=== PATIENT | female | born 1990 | race American Indian/Alaskan Native ===

== ENCOUNTER 2016-07-28 04:19 | Emergency (ER) | payer SELFPAY ==
--- NOTE | 2016-07-28 08:51 | Emergency Department Report ---
ED Rash HPI - HPI Chief Complaint: Skin Rash Stated Complaint: RASH Time Seen by Provider: 07/28/16 08:45 Duration: Today Location: Head, Neck, Chest, Back, Abdomen, Upper Extremities, Lower Extremities Rash Symptoms: Yes Itching, No Facial Swelling, No Tongue/Oral Swelling, No Breathing Difficulties, No Choking Sensation, No Wheezing/Dyspnea, No Peeling, No Blistering, No Fever, No Lightheaded, No Malaise, No Myalgias Severity: mild Other History: 26-year-old female past medical history none presents with complaint of diffuse itchy rash on the skin after swimming in pool 2 nights ago. Patient denies any use of any new cosmetics or creams no new pets no new perfumes denies any new types of food or drink. States that after exiting pool she felt very itchy and subsequently developed this rash a few hours later. Visible rash appears like folliculitis on face trunk and arms legs and back. Patient denies any fever or chills no nausea or vomiting no chest pain no abdominal pain. Denies any recent travel. ED Review of Systems ROS: Stated complaint: RASH Other details as noted in HPI Constitutional: denies: chills, fever Eyes: denies: eye pain, eye discharge, vision change ENT: denies: ear pain, throat pain Respiratory: denies: cough, shortness of breath, wheezing Cardiovascular: denies: chest pain, palpitations Endocrine: no symptoms reported Gastrointestinal: denies: abdominal pain, nausea, diarrhea Genitourinary: denies: urgency, dysuria, discharge Musculoskeletal: denies: back pain, joint swelling, arthralgia Skin: rash, lesions Neurological: denies: headache, weakness, paresthesias Psychiatric: denies: anxiety, depression Hematological/Lymphatic: denies: easy bleeding, easy bruising ED Past Medical Hx - Past Medical History Previous Medical History?: Yes Hx Psychiatric Treatment: Yes (ANXIETY) Hx Asthma: Yes Additional medical history: VERTIGO - Surgical History Past Surgical History?: Yes Additional Surgical History: R knee surgery - Social History Smoking Status: Never Smoker Substance Use Type: None - Medications Home Medications: Home Medications Medication Instructions Recorded Confirmed Last Taken Type Ativan 0.5 mg PO QHS PRN #10 04/07/15 Unknown Rx Zoloft 50 mg PO DAILY #30 04/07/15 Unknown Rx Albuterol Sulfate [Ventolin HFA] 2 puff IH Q4H PRN #1 hfa.aer.ad 10/17/15 Unknown Rx Amoxicillin/K Clav Tab [Augmentin 1 tab PO Q12HR #20 tab 10/17/15 Unknown Rx 875 mg] Fluticasone [Flonase] 2 spray NS QDAY #1 bottle 10/17/15 Unknown Rx Ibuprofen [Motrin] 600 mg PO Q8H PRN #30 tablet 10/17/15 Unknown Rx Loratadine [Claritin] 10 mg PO DAILY #30 tablet 10/17/15 Unknown Rx Promethazine /Codeine 5 ml PO Q6H PRN #120 ml 10/17/15 Unknown Rx [Phenergan/Codeine 6.25-10 mg/5 ml] Ciprofloxacin HCl [Ciprofloxacin 500 mg PO Q12H #14 tab 07/28/16 Unknown Rx TAB] Famotidine [Pepcid] 20 mg PO BID #20 tablet 07/28/16 Unknown Rx Hydrocortisone 1% [Hydrocortisone 1 applicatio TP TID PRN #1 tube 07/28/16 Unknown Rx 1% CREAM] Rash Exam - Exam General: Vital signs noted. No distress. Alert and acting appropriately. HEENT: No Periorbital Edema, No Conjuctival Injection, No Chemosis, No Perioral Edema, No Tongue Edema, No Uvular Edema, No Compromised Airway, No Drooling Lungs: Yes Good Air Exchange (Normal Breath Sounds), No Wheezes, No Ronchi, No Stridor, No Cough, No Labored Respirations, No Retractions, No Use of Accessory Muscles, No Other Abnormal Lung Sounds Heart: Yes Regular, No Murmur Skin: Yes Maculopapular Rash (multiple pimples and pustules diffusely distributed on the trunk and back arms and legs no oral pharyngeal involvement whatsoever no signs of angioedema no intraoral lesions no lesions and groin region no involvement of palms or soles of feet) Other: Positive: Abdomen Normal, Neurologic Normal, Musculoskeletal Normal ED Course Vital Signs 07/28/16 07:18 Temperature 97.8 F Pulse Rate 99 H Respiratory 16 Rate Blood Pressure 155/107 O2 Sat by Pulse 100 Oximetry ED Medical Decision Making - Medical Decision Making A/P: Folliculitis possibly hot tub folliculitis 1- given history of recent swimming in a [facility] swimming pool and subsequent development of Multiple erythematous papules and pustule with appearance of folliculitis we'll treat for hot tub folliculitis and cover for pseudomonas with ciprofloxacin 500 mg twice a day 7 days 2-Claritin, Benadryl, Pepcid for itching, hydrocortisone cream to areas of itching 3-follow up with primary care doctor 4-she has no signs of angioedema, no intraoral lesions, no clinical signs of erythema multiforme, no desquamation of skin Critical care attestation.: If time is entered above; I have spent that time in minutes in the direct care of this critically ill patient, excluding procedure time. ED Disposition Clinical Impression: Hot tub folliculitis Disposition: DISCHARGED TO HOME OR SELFCARE Is pt being admited?: No Does the pt Need Aspirin: No Condition: Stable Instructions: Folliculitis (ED) Prescriptions: Ciprofloxacin HCl [Ciprofloxacin TAB] 500 mg PO Q12H #14 tab Famotidine [Pepcid] 20 mg PO BID #20 tablet Hydrocortisone 1% [Hydrocortisone 1% CREAM] 1 applicatio TP TID PRN #1 tube PRN Reason: Itching Referrals: [facility] [Outside] - 3-[address] [facility] [Outside] - 3-5 Days Forms: Work/School Release Form(ED) Time of Disposition: 09:21
[2016-07-28] MEDS ORDERED: BENADRYL PO ONE (08:55)
[2016-07-28] MEDS ORDERED: PEPCID PO ONE (08:56)
[2016-07-28] MEDS ORDERED: DELTASONE PO ONE (08:56)
[2016-07-28 09:34] VITALS: BP 105/100
== END 2016-07-28 09:32 | disposition home or self-care (01) ==
LOC: ED 04:19
DX: L73.8 Other specified follicular disorders (principal); F41.9 Anxiety disorder, unspecified; J45.909 Unspecified asthma, uncomplicated
CPT/HCPCS: 99282; J7512

== ENCOUNTER 2020-07-07 14:13 | Emergency (ER) | payer SELFPAY ==
[2020-07-07 14:36] VITALS: BP 151/106
[2020-07-07] MEDS ORDERED: MECLIZINE 25 MG TAB PO ONE (14:39)
[2020-07-07 15:12] LABS: Basophils % (Auto) 0.7 % (0.0-1.8); Eosinophils % (Auto) 0.5 % (0.0-4.3); Hematocrit 38.4 % (30.3-42.9); Hemoglobin 12.9 gm/dl (10.1-14.3); Lymphocytes # (Auto) 1.3 K/mm3 (1.2-5.4); Lymphocytes % (Auto) 18.8 % (13.4-35.0); Mean Corpuscular HGB Conc 34 % (30-34); Mean Corpuscular Volume 85 fl (79-97); Monocytes # (Auto) 0.2 K/mm3 (0.0-0.8); Monocytes % (Auto) 3.5 % (0.0-7.3); Platelet Count 305 K/mm3 (140-440); Red Blood Count 4.52 M/mm3 (3.65-5.03); Red Cell Distribution Width 18.8 % (13.2-15.2)
[2020-07-07 15:19] LABS: BUN/Creatinine Ratio 16; Blood Urea Nitrogen 13 mg/dL (7-17); Calcium 9.2 mg/dL (8.4-10.2); Hemolysis Index 3
--- NOTE | 2020-07-07 15:44 | XRay Report ---
CHEST 2 VIEWS INDICATION: cp. COMPARISON: None. FINDINGS: Support devices: None. Heart: Within normal limits. Lungs/Pleura: No acute air space or interstitial disease. No significant pleural effusion. IMPRESSION: No acute findings. Signer Name: Georges Holcomb MD Signed: 07/07/2020 3:39 PM Workstation Name: [id number]
--- NOTE | 2020-07-07 18:22 | Emergency Department Report ---
<KARY BARRETT - Last Filed: 07/07/20 21:23> ED General Adult HPI - General Chief complaint: Dizziness Stated complaint: DIZZY/LIGHTHEADED PUI?: No Time Seen by Provider: 07/07/20 15:01 Source: patient Mode of arrival: Ambulatory Limitations: No Limitations - History of Present Illness Initial comments: This is a 30-year-old female with a history of vertigo and anxiety who presents ED today complaining of dizziness intermittently has been going on for some months now. Patient states that every month she gets an episode of dizziness mostly while she is staring at a computer or doing homework. Patient states that she was diagnosed with anxiety several years ago but has stopped taking medication due to the her disagreement with the doctor that she does not have anxiety. Patient states that sometimes she also gets headaches on the frontal facial region. She denies fever/chills/trauma/shortness of breath/blurry vision/chest pain or any other problems. Patient is concerned about dizziness stating that she thinks something is wrong with her heart that may be causing her to get dizzy. - Related Data Previous Rx's Medication Instructions Recorded Last Taken Type Ativan 0.5 mg PO QHS PRN #10 04/07/15 Unknown Rx Zoloft 50 mg PO DAILY #30 04/07/15 Unknown Rx Albuterol Sulfate [Ventolin HFA] 2 puff IH Q4H PRN #1 hfa.aer.ad 10/17/15 Unknown Rx Amoxicillin/K Clav Tab [Augmentin 1 tab PO Q12HR #20 tab 10/17/15 Unknown Rx 875 mg] Ibuprofen [Motrin] 600 mg PO Q8H PRN #30 tablet 10/17/15 Unknown Rx Loratadine (Nf) [Claritin] 10 mg PO DAILY #30 tablet 10/17/15 Unknown Rx Promethazine /Codeine 5 ml PO Q6H PRN #120 ml 10/17/15 Unknown Rx [Phenergan/Codeine 6.25-10 mg/5 ml] Ciprofloxacin HCl [Ciprofloxacin 500 mg PO Q12H #14 tab 07/28/16 Unknown Rx TAB] Famotidine [Pepcid] 20 mg PO BID #20 tablet 07/28/16 Unknown Rx Hydrocortisone 1% [Hydrocortisone 1 applicatio TP TID PRN #1 tube 07/28/16 Unknown Rx 1% CREAM] Amoxicillin [Trimox] 500 mg PO Q8HR #21 capsule 07/07/20 Unknown Rx Fluticasone [Flonase] 2 spray NS QDAY #1 bottle 07/07/20 Unknown Rx LORazepam [Ativan] 0.5 mg PO QHS #10 tab 07/07/20 Unknown Rx Allergies Allergy/AdvReac Type Severity Reaction Status Date / Time No Known Allergies Allergy Verified 04/07/15 19:19 ED Review of Systems Comment: All other systems reviewed and negative ED Past Medical Hx - Past Medical History Previous Medical History?: Yes Hx Psychiatric Treatment: Yes (ANXIETY) Hx Asthma: Yes Additional medical history: VERTIGO - Surgical History Past Surgical History?: Yes Additional Surgical History: R knee surgery - Social History Smoking Status: Never Smoker Substance Use Type: None - Medications Home Medications: Home Medications Medication Instructions Recorded Confirmed Last Taken Type Ativan 0.5 mg PO QHS PRN #10 04/07/15 Unknown Rx Zoloft 50 mg PO DAILY #30 04/07/15 Unknown Rx Albuterol Sulfate [Ventolin HFA] 2 puff IH Q4H PRN #1 hfa.aer.ad 10/17/15 Unknown Rx Amoxicillin/K Clav Tab [Augmentin 1 tab PO Q12HR #20 tab 10/17/15 Unknown Rx 875 mg] Ibuprofen [Motrin] 600 mg PO Q8H PRN #30 tablet 10/17/15 Unknown Rx Loratadine (Nf) [Claritin] 10 mg PO DAILY #30 tablet 10/17/15 Unknown Rx Promethazine /Codeine 5 ml PO Q6H PRN #120 ml 10/17/15 Unknown Rx [Phenergan/Codeine 6.25-10 mg/5 ml] Ciprofloxacin HCl [Ciprofloxacin 500 mg PO Q12H #14 tab 07/28/16 Unknown Rx TAB] Famotidine [Pepcid] 20 mg PO BID #20 tablet 07/28/16 Unknown Rx Hydrocortisone 1% [Hydrocortisone 1 applicatio TP TID PRN #1 tube 07/28/16 Unknown Rx 1% CREAM] Amoxicillin [Trimox] 500 mg PO Q8HR #21 capsule 07/07/20 Unknown Rx Fluticasone [Flonase] 2 spray NS QDAY #1 bottle 07/07/20 Unknown Rx LORazepam [Ativan] 0.5 mg PO QHS #10 tab 07/07/20 Unknown Rx ED Physical Exam - General Limitations: No Limitations General appearance: alert, in no apparent distress - Head Head exam: Present: atraumatic, normocephalic - Eye Eye exam: Present: normal appearance - ENT ENT exam: Present: mucous membranes moist, TM's normal bilaterally, other (Maxillary sinus tenderness) - Expanded ENT Exam Expanded TM/Canal exam: Effusion: Left TM, Right TM Throat exam: Positive: normal inspection - Neck Neck exam: Present: normal inspection, full ROM - Respiratory Respiratory exam: Present: normal lung sounds bilaterally. Absent: respiratory distress - Cardiovascular Cardiovascular Exam: Present: regular rate, normal rhythm. Absent: systolic murmur, diastolic murmur, rubs, gallop - GI/Abdominal GI/Abdominal exam: Present: soft, normal bowel sounds - Extremities Exam Extremities exam: Present: normal inspection - Back Exam Back exam: Present: normal inspection - Neurological Exam Neurological exam: Present: alert, oriented X3 - Psychiatric Psychiatric exam: Present: normal affect, normal mood - Skin Skin exam: Present: warm, dry, intact, normal color. Absent: rash ED Medical Decision Making - Lab Data Result diagrams: 07/07/20 14:52 07/07/20 14:52 Laboratory Last Values WBC 6.8 K/mm3 (4.5-11.0) 07/07/20 14:52 RBC 4.52 M/mm3 (3.65-5.03) 07/07/20 14:52 Hgb 12.9 gm/dl (10.1-14.3) 07/07/20 14:52 Hct 38.4 % (30.3-42.9) 07/07/20 14:52 MCV 85 fl (79-97) 07/07/20 14:52 MCH 29 pg (28-32) 07/07/20 14:52 MCHC 34 % (30-34) 07/07/20 14:52 RDW 18.8 % (13.2-15.2) H 07/07/20 14:52 Plt Count 305 K/mm3 (140-440) 07/07/20 14:52 Lymph % (Auto) 18.8 % (13.4-35.0) 07/07/20 14:52 [place] % (Auto) 3.5 % (0.0-7.3) 07/07/20 14:52 Eos % (Auto) 0.5 % (0.0-4.3) 07/07/20 14:52 Baso % (Auto) 0.7 % (0.0-1.8) 07/07/20 14:52 Lymph # (Auto) 1.3 K/mm3 (1.2-5.4) 07/07/20 14:52 [place] # (Auto) 0.2 K/mm3 (0.0-0.8) 07/07/20 14:52 Eos # (Auto) 0.0 K/mm3 (0.0-0.4) 07/07/20 14:52 Baso # (Auto) 0.0 K/mm3 (0.0-0.1) 07/07/20 14:52 Seg Neutrophils % 76.5 % (40.0-70.0) H 07/07/20 14:52 Seg Neutrophils # 5.2 K/mm3 (1.8-7.7) 07/07/20 14:52 Sodium 135 mmol/L (137-145) L 07/07/20 14:52 Potassium 3.6 mmol/L (3.6-5.0) 07/07/20 14:52 Chloride 99.2 mmol/L (98-107) 07/07/20 14:52 Carbon Dioxide 28 mmol/L (22-30) 07/07/20 14:52 Anion Gap 11 mmol/L 07/07/20 14:52 BUN 13 mg/dL (7-17) 07/07/20 14:52 Creatinine 0.8 mg/dL (0.6-1.2) 07/07/20 14:52 Estimated GFR > 60 ml/min 07/07/20 14:52 BUN/Creatinine Ratio 16 % 07/07/20 14:52 Glucose 139 mg/dL (65-100) H 07/07/20 14:52 Calcium 9.2 mg/dL (8.4-10.2) 07/07/20 14:52 - Radiology Data Radiology results: report reviewed, image reviewed No cardio pulmonary process. Normal x-ray. - Medical Decision Making This 30-year-old female presented with intermittent dizziness most likely secondary to vertigo. All labs are within normal limits. Discussed findings with the patient. Chest x-ray shows no acute findings. Discussed with patient to follow-up with the ENT specialist. Due to physical findings we will treat for sinus congestion as this may cause intermittent dizziness. Vital signs are normal she is in no acute distress or respiratory distress. Patient understand instructions. I did discuss with patient to also follow-up with therapist to be assessed for her anxiety to be properly managed. I did discuss with patient to return to ED if she has worsening symptoms. ED Disposition Clinical Impression: Vertigo, Anxiety disorder Disposition: DC-01 TO HOME OR SELFCARE Is pt being admited?: No Does the pt Need Aspirin: No Condition: Stable Instructions: Managing Anxiety, Adult, Dizziness, [id number] Additional Instructions: Make sure to follow up with the primary care physician as discussed. Take all your medications as you've been prescribed. If you have any worsening symptoms or develop new symptoms please return to ED immediately. Prescriptions: LORazepam [Ativan] 0.5 mg PO QHS #10 tab Amoxicillin [Trimox] 500 mg PO Q8HR #21 capsule Fluticasone [Flonase] 2 spray NS QDAY #1 bottle Referrals: [facility] [Provider Group] - 3-[facility]Provider [facility]] - 3-5 Days [facility] [Outside] - 3-5 Days [facility] [Outside] - 3-5 Days SAIGE ARNOLD MD [Staff Physician] - 3-5 Days ROGERIO HOLLEY MD [Primary Care Provider] - 3-5 Days Forms: Accompanied Note, Work/School Release Form(ED) Time of Disposition: 18:27 <MOLLY MCNAMARA - Last Filed: 07/08/20 10:49> ED Review of Systems ROS: Stated complaint: DIZZY/LIGHTHEADED Other details as noted in HPI ED Course Vital Signs 07/07/20 14:34 Temperature 98.8 F Pulse Rate 119 H Respiratory 18 Rate Blood Pressure 151/106 O2 Sat by Pulse 99 Oximetry ED Medical Decision Making - Lab Data Result diagrams: 07/07/20 14:52 07/07/20 14:52 - Medical Decision Making This patient was evaluated and dispositioned by the advanced practitioner. I was available for consultation but was not contacted to see this patient or discuss their workup or ED course. The patient was discharged after my shift had ended and I was gone from the hospital property. I have reviewed this chart and the labs and imaging obtained did come back within the normal limits and chest x-ray did not show any acute findings. Critical care attestation.: If time is entered above; I have spent that time in minutes in the direct care of this critically ill patient, excluding procedure time. ED Disposition Is pt being admited?: No
== END 2020-07-07 18:35 | disposition home or self-care (01) ==
LOC: ED 14:13
DX: F41.9 Anxiety disorder, unspecified (principal); R42 Dizziness and giddiness; J45.909 Unspecified asthma, uncomplicated; Z79.899 Other long term (current) drug therapy; Z98.890 Other specified postprocedural states
CPT/HCPCS: 36415; 71046; 80048; 85025; 99283

== ENCOUNTER 2020-08-03 13:42 | Emergency (ER) | payer SELFPAY ==
--- NOTE | 2020-08-03 15:30 | Event Note ---
ED Screening Note ED Screening Note: PT WANTED ATIVAN REFILL WHEN TOLD WE WOULD NOT GIVE IT TO HER SHE LEFT ER CLAIMS TO HAVE FOLLOW UP NEXT MONTH This initial assessment/diagnostic orders/clinical plan/treatment(s) is/are subject to change based on patients health status, clinical progression and re- assessment by fellow clinical providers in the ED. Further treatment and workup at subsequent clinical providers discretion. Patient/guardian urged not to elope from the ED as their condition may be serious if not clinically assessed and ma naged. Initial orders include: LEFT BEFORE TRIAGE
== END 2020-08-03 15:30 | disposition left against medical advice (07) ==
LOC: ED 13:42
DX: Z76.0 Encounter for issue of repeat prescription (principal); Z53.21 Procedure and treatment not carried out due to patient leaving prior to being seen by health care provider